=== PATIENT | male | born 1995 | race Caucasian/White ===

== ENCOUNTER 2018-08-19 19:32 | Emergency (ER) | payer SELFPAY ==
[2018-08-19 19:32] VITALS: BP 147/100; PULSE 105; RESP 20; TEMP 36.7; O2SAT 97; BMI 47.5
--- NOTE | 2018-08-19 20:01 | ED.VISSUMM ---
- ER Visit Summary Date of Service: 08/19/18 Chief Complaint: Patient has 2 main complaints 1 is fatigue and difficulty sleeping for approximately 1 year and second complaint is viral upper respiratory type symptoms History of Present Illness: The patient is a 23 M who reports she has had trouble sleeping for approximate 1 year. He states he can sleep 16 hours and not feel rested. states he snores wakes up gasping for breath. BMI is 47.5. He is a former smoker. He states he had one cigarette on his birthday. Prior to that he had not smoked in 5 months. He reports fleeting left-sided chest pain that lasted for 1 second x 1 year. He states for the last 2-3 days has had runny nose, congestion, postnasal drainage and a nonproductive cough. He denies fever, chills or night sweats. He denies shortness of breath or dyspnea on exertion. He denies orthopnea or PND. He denies GI symptoms. Physical Examination: Vital signs noted and remarkable for blood pressure 147/100, heart rate of 105 and respiratory rate of 20. He is not febrile nor is he hypoxic. HEENT exam is marked for nasal congestion postnasal drainage. Uvula is midline. Posterior pharynx without erythema or exudate. TMs normal. Trachea midline. There is no cervical lymphadenopathy or stridor. Lungs are clear to auscultation. Heart is regular without murmur, gallop or rub. Abdomen is soft nontender. There is no asymmetry, swelling, discoloration, leg vein distention, palpable cords or tenderness along the distribution of the deep venous system. Neuro exam is nonfocal. Test Results: None Emergency Department Course and Treatment: Patient was informed that his respiratory symptoms secondary to an upper respiratory infection. His other symptoms are in all likelihood secondary to obstructive sleep apnea. He was instructed to contact his primary care physician for outpatient follow-up and sleep study. Treatment Plan: Home-going instructions for upper viral restaurant infection and obstructive sleep apnea Disposition: Discharged home Impression: 1. Acute viral upper respiratory infection 2. Undiagnosed obstructive sleep apnea This note was generated with [employer] dictation software. It may contain incorrect words, spelling, and punctuation that were not noted in review of the chart prior to signing ED Disposition - Plan for ED Patient: Disposition: Home or Assisted Living Chief Complaint: Shortness of Breath Instructions: ED Upper Resp Infec No Abx Tx, ED Apnea Sleep Obstructive Referrals: Tayo Heard MD [Primary Care Provider] - 5-7 Days
--- NOTE | 2018-08-19 20:06 | ED.DCSUM_ITS ---
- ER Visit Summary Date of Service: 08/19/18 Chief Complaint: Patient has 2 main complaints 1 is fatigue and difficulty sleeping for approximately 1 year and second complaint is viral upper respiratory type symptoms History of Present Illness: The patient is a 23 M who reports she has had trouble sleeping for approximate 1 year. He states he can sleep 16 hours and not feel rested. states he snores wakes up gasping for breath. BMI is 47.5. He is a former smoker. He states he had one cigarette on his birthday. Prior to that he had not smoked in 5 months. He reports fleeting left-sided chest pain that lasted for 1 second x 1 year. He states for the last 2-3 days has had runny nose, congestion, postnasal drainage and a nonproductive cough. He denies fever, chills or night sweats. He denies shortness of breath or dyspnea on exertion. He denies orthopnea or PND. He denies GI symptoms. Physical Examination: Vital signs noted and remarkable for blood pressure 147/100, heart rate of 105 and respiratory rate of 20. He is not febrile nor is he hypoxic. HEENT exam is marked for nasal congestion postnasal drainage. Uvula is midline. Posterior pharynx without erythema or exudate. TMs normal. Trachea midline. There is no cervical lymphadenopathy or stridor. Lungs are clear to auscultation. Heart is regular without murmur, gallop or rub. Abdomen is soft nontender. There is no asymmetry, swelling, discoloration, leg vein distention, palpable cords or tenderness along the distribution of the deep venous system. Neuro exam is nonfocal. Test Results: None Emergency Department Course and Treatment: Patient was informed that his respiratory symptoms secondary to an upper respiratory infection. His other symptoms are in all likelihood secondary to obstructive sleep apnea. He was ins tructed to contact his primary care physician for outpatient follow-up and sleep study. Treatment Plan: Home-going instructions for upper viral restaurant infection and obstructive sleep apnea Disposition: Discharged home Impression: 1. Acute viral upper respiratory infection 2. Undiagnosed obstructive sleep apnea This note was generated with [employer] dictation software. It may contain incorrect words, spelling, and punctuation that were not noted in review of the chart prior to signing ED Disposition - Plan for ED Patient: Disposition: Home or Assisted Living Chief Complaint: Shortness of Breath Instructions: ED Upper Resp Infec No Abx Tx, ED Apnea Sleep Obstructive Referrals: Tayo Heard MD [Primary Care Provider] - 5-7 Days
== END 2018-08-19 20:20 | disposition home or self-care (01) ==
PROVIDERS: Emergency Provider Emergency Medicine; Family Provider Family Medicine; PCP Family Medicine
DX: J06.9 Acute upper respiratory infection, unspecified (principal); G47.33 Obstructive sleep apnea (adult) (pediatric); Z87.891 Personal history of nicotine dependence; Z68.42 Body mass index [BMI] 45.0-49.9, adult; E66.9 Obesity, unspecified
CPT/HCPCS: 99282